=== PATIENT | female | born 1960 | race Caucasian/White ===

== ENCOUNTER 2023-05-24 11:36 | Outpatient (REF) | payer BC, SELFPAY ==
[2023-05-24 15:01] LABS: BUN 21 mg/dL (7-18); CREATININE 1.2 mg/dL (0.55-1.02); Calcium 9.7 mg/dL (8.5-10.1); Chloride 102 mmol/L (98-107); Glucose 118 mg/dL (74-106); Sodium 141 mmol/L (136-145)
[2023-05-24 15:24] LABS: Potassium 2.8 mmol/L (3.5-5.1)
== END 2023-05-24 11:37 | disposition home or self-care (01) ==
LOC: NCHCN 11:36
PROVIDERS: PCP Family Medicine; Visit Provider Family Medicine
DX: I10 Essential (primary) hypertension (principal)
CPT/HCPCS: 80048

== ENCOUNTER 2023-05-25 12:05 | Outpatient (REF) | payer BC, SELFPAY ==
[2023-05-25 16:00] LABS: Anion Gap 10.6 mmol/L (3-11); BUN 21 mg/dL (7-18); CO2 29.4 mmol/L (21.0-32.0); CREATININE 1.2 mg/dL (0.55-1.02); Calcium 9.8 mg/dL (8.5-10.1); Chloride 103 mmol/L (98-107); Glucose 96 mg/dL (74-106); Magnesium 2.1 mg/dL (1.8-2.4); Potassium 4.2 mmol/L (3.5-5.1); Sodium 143 mmol/L (136-145)
== END 2023-05-25 12:06 | disposition home or self-care (01) ==
LOC: NCHCN 12:05
PROVIDERS: PCP Family Medicine; Visit Provider Family Medicine
DX: E87.6 Hypokalemia (principal)
CPT/HCPCS: 80048; 83735

== ENCOUNTER 2023-07-23 09:47 | Outpatient (CLI) | payer BC, SELFPAY ==
[2023-07-23 09:56] LABS: Abs Immature Grans 0.01 10^3/uL (0.0-0.06); Absolute Basophil Count 0.02 10^3/uL (0.0-0.2); Absolute Eosinophil Count 0.04 10^3/uL (0.0-0.7); Absolute Lymphocyte Count 0.76 10^3/uL (1.2-3.4); Absolute Monocyte Count 0.15 10^3/uL (0.1-0.8); Absolute Neutrophil Count 1.21 10^3/uL (1.2-6.7); Basophils % 0.9; Eosinophils % 1.8; HCT 30.4 % (36.0-46.0); HGB 10.7 g/dL (11.2-15.7); Immature Grans % 0.5; Lymphocytes % 34.7; MCH 33.3 pg (27.0-33.0); MCHC 35.2 % (32.0-36.0); MCV 95 fL (80-95); MPV 9.4 fL (8.0-11.0); Monocytes % 6.8; Neutrophils % 55.3; Platelet Count 125 10^3/uL (130-400); RBC 3.21 10^6/uL (3.93-5.22); RDW 16.8 % (11.7-14.6); WBC 2.19 10^3/uL (4.4-10.8)
[2023-07-23 10:21] LABS: ALT 25 U/L (14-59); AST 17 U/L (15-37); Albumin 3.7 g/dL (3.4-5.0); Alkaline Phosphatase 81 U/L (46-116); Anion Gap 7.2 mmol/L (3-11); BUN 22 mg/dL (7-18); Bilirubin, Total 0.7 mg/dL (0.2-1.0); CO2 28.8 mmol/L (21.0-32.0); CREATININE 1.1 mg/dL (0.55-1.02); Chloride 104 mmol/L (98-107); Estimated GFR 57.17 (mL/min/1.73m2); Glucose 93 mg/dL (74-106); Potassium 4.3 mmol/L (3.5-5.1); Sodium 140 mmol/L (136-145); Total Protein 7.5 g/dL (6.4-8.2)
== END 2023-07-23 09:48 | disposition home or self-care (01) ==
LOC: LBO 09:47
PROVIDERS: PCP Family Medicine; Visit Provider Internal Medicine Hematology & Oncology
DX: C50.911 Malignant neoplasm of unspecified site of right female breast (principal)
CPT/HCPCS: 36415; 80053; 85025

== ENCOUNTER 2023-08-17 15:19 | Outpatient (CLI) | payer BC, SELFPAY ==
[2023-08-17 15:15] LABS: Absolute Basophil Count 0.04 10^3/uL (0.0-0.2); Absolute Eosinophil Count 0.03 10^3/uL (0.0-0.7); Absolute Lymphocyte Count 1.01 10^3/uL (1.2-3.4); Absolute Monocyte Count 0.22 10^3/uL (0.1-0.8); Absolute Neutrophil Count 1.22 10^3/uL (1.2-6.7); Basophils % 1.6 %; Eosinophils % 1.2 %; HCT 28.4 % (36.0-46.0); Lymphocytes % 40.1 %; MCH 35.7 pg (27.0-33.0); MCHC 35.2 % (32.0-36.0); MCV 101 fL (80-95); MPV 8.5 fL (8.0-11.0); Monocytes % 8.7 %; Neutrophils % 48.4 %; Platelet Count 114 10^3/uL (130-400); RDW 15.8 % (11.7-14.6); RDW-SD 59.2 fL; WBC 2.52 10^3/uL (4.4-10.8)
[2023-08-17 15:52] LABS: ALT 22 U/L (14-59); AST 12 U/L (15-37); Albumin 3.7 g/dL (3.4-5.0); Alkaline Phosphatase 75 U/L (46-116); Anion Gap 7.6 mmol/L (3-11); BUN 20 mg/dL (7-18); Bilirubin, Total 0.4 mg/dL (0.2-1.0); CO2 28.4 mmol/L (21.0-32.0); CREATININE 1.1 mg/dL (0.55-1.02); Calcium 9.3 mg/dL (8.5-10.1); Chloride 108 mmol/L (98-107); Estimated GFR 57.17 (mL/min/1.73m2); Glucose 92 mg/dL (74-106); Potassium 3.8 mmol/L (3.5-5.1); Sodium 144 mmol/L (136-145); Total Protein 7.4 g/dL (6.4-8.2)
== END 2023-08-17 15:20 | disposition home or self-care (01) ==
LOC: LBO 15:19
PROVIDERS: PCP Family Medicine; Visit Provider Internal Medicine Hematology & Oncology
DX: C50.919 Malignant neoplasm of unspecified site of unspecified female breast (principal)
CPT/HCPCS: 36415; 80053; 85025

== ENCOUNTER 2023-09-15 05:33 | Outpatient (CLI) | payer BC, SELFPAY ==
[2023-09-15 13:34] LABS: Abs Immature Grans 0.01 10^3/uL (0.0-0.06); Absolute Basophil Count 0.04 10^3/uL (0.0-0.2); Absolute Eosinophil Count 0.04 10^3/uL (0.0-0.7); Absolute Lymphocyte Count 1.04 10^3/uL (1.2-3.4); Absolute Monocyte Count 0.19 10^3/uL (0.1-0.8); Basophils % 1.4 %; Eosinophils % 1.4 %; HCT 31.6 % (36.0-46.0); Immature Grans % 0.3 %; Lymphocytes % 35.6 %; MCH 35.9 pg (27.0-33.0); MCHC 34.8 % (32.0-36.0); MCV 103 fL (80-95); MPV 8.9 fL (8.0-11.0); Monocytes % 6.5 %; Neutrophils % 54.8 %; Platelet Count 117 10^3/uL (130-400); RBC 3.06 10^6/uL (3.93-5.22); RDW 13.1 % (11.7-14.6); RDW-SD 49.5 fL; WBC 2.92 10^3/uL (4.4-10.8)
[2023-09-15 14:28] LABS: ALT 27 U/L (14-59); AST 15 U/L (15-37); Albumin 3.8 g/dL (3.4-5.0); Alkaline Phosphatase 92 U/L (46-116); Anion Gap 8.8 mmol/L (3-11); BUN 25 mg/dL (7-18); Bilirubin, Total 0.5 mg/dL (0.2-1.0); CO2 28.2 mmol/L (21.0-32.0); CREATININE 1.3 mg/dL (0.55-1.02); Calcium 9.6 mg/dL (8.5-10.1); Chloride 104 mmol/L (98-107); Estimated GFR 46.78 (mL/min/1.73m2); Glucose 89 mg/dL (74-106); Potassium 4.1 mmol/L (3.5-5.1); Sodium 141 mmol/L (136-145); Total Protein 7.8 g/dL (6.4-8.2)
== END 2023-09-15 05:34 | disposition home or self-care (01) ==
LOC: LBO 05:33
PROVIDERS: PCP Family Medicine; Visit Provider Internal Medicine Hematology & Oncology
DX: C50.912 Malignant neoplasm of unspecified site of left female breast (principal)
CPT/HCPCS: 36415; 80053; 85025

== ENCOUNTER 2023-10-12 02:53 | Outpatient (CLI) | payer BC, SELFPAY ==
[2023-10-12 11:18] LABS: Absolute Basophil Count 0.05 10^3/uL (0.0-0.2); Absolute Eosinophil Count 0.05 10^3/uL (0.0-0.7); Absolute Lymphocyte Count 0.77 10^3/uL (1.2-3.4); Absolute Neutrophil Count 1.64 10^3/uL (1.2-6.7); Basophils % 1.8 %; Eosinophils % 1.8 %; HCT 28.9 % (36.0-46.0); HGB 10.3 g/dL (11.2-15.7); Lymphocytes % 28.4 %; MCH 36.5 pg (27.0-33.0); MCHC 35.6 % (32.0-36.0); MCV 103 fL (80-95); MPV 8.8 fL (8.0-11.0); Monocytes % 7.4 %; Neutrophils % 60.6 %; Platelet Count 129 10^3/uL (130-400); RBC 2.82 10^6/uL (3.93-5.22); RDW 12.4 % (11.7-14.6); RDW-SD 46.2 fL; WBC 2.71 10^3/uL (4.4-10.8)
[2023-10-12 11:32] LABS: Albumin 3.6 g/dL (3.4-5.0); Alkaline Phosphatase 97 U/L (46-116); BUN 20 mg/dL (7-18); Bilirubin, Total 0.44 mg/dL (0.2-1.0); CO2 27.7 mmol/L (21.0-32.0); CREATININE 1.1 mg/dL (0.55-1.02); Calcium 9.7 mg/dL (8.5-10.1); Chloride 104 mmol/L (98-107); Estimated GFR 57.17 (mL/min/1.73m2); Glucose 86 mg/dL (74-106); Potassium 3.8 mmol/L (3.5-5.1); Sodium 140 mmol/L (136-145); Total Protein 7.9 g/dL (6.4-8.2)
[2023-10-12 11:33] LABS: ALT 18 U/L (14-59); AST 12 U/L (15-37); Anion Gap 8.3 mmol/L (3-11)
== END 2023-10-12 02:54 | disposition home or self-care (01) ==
LOC: LBO 02:53
PROVIDERS: PCP Family Medicine; Visit Provider Internal Medicine Hematology & Oncology
DX: C50.919 Malignant neoplasm of unspecified site of unspecified female breast (principal)
CPT/HCPCS: 36415; 80053; 85025

== ENCOUNTER 2023-11-09 03:23 | Outpatient (CLI) | payer BC, SELFPAY ==
[2023-11-09 07:35] LABS: Absolute Basophil Count 0.04 10^3/uL (0.0-0.2); Absolute Eosinophil Count 0.05 10^3/uL (0.0-0.7); Absolute Lymphocyte Count 0.81 10^3/uL (1.2-3.4); Absolute Monocyte Count 0.19 10^3/uL (0.1-0.8); Absolute Neutrophil Count 1.23 10^3/uL (1.2-6.7); Basophils % 1.7 %; Eosinophils % 2.2 %; HCT 29.5 % (36.0-46.0); HGB 10.7 g/dL (11.2-15.7); Lymphocytes % 34.9 %; MCH 37.2 pg (27.0-33.0); MCHC 36.3 % (32.0-36.0); MCV 102 fL (80-95); Monocytes % 8.2 %; Platelet Count 103 10^3/uL (130-400); RBC 2.88 10^6/uL (3.93-5.22); RDW 12.6 % (11.7-14.6); WBC 2.32 10^3/uL (4.4-10.8)
[2023-11-09 07:52] LABS: ALT 21 U/L (14-59); Albumin 3.5 g/dL (3.4-5.0); Alkaline Phosphatase 90 U/L (46-116); Anion Gap 13.2 mmol/L (3-11); BUN 16 mg/dL (7-18); Bilirubin, Total 0.37 mg/dL (0.2-1.0); CO2 21.8 mmol/L (21.0-32.0); CREATININE 1.1 mg/dL (0.55-1.02); Calcium 8.9 mg/dL (8.5-10.1); Chloride 109 mmol/L (98-107); Estimated GFR 56.81 (mL/min/1.73m2); Glucose 103 mg/dL (74-106); Potassium 3.9 mmol/L (3.5-5.1); Sodium 144 mmol/L (136-145); Total Protein 7.4 g/dL (6.4-8.2)
[2023-11-09 08:13] LABS: AST < 5 U/L (15-37)
== END 2023-11-09 03:24 | disposition home or self-care (01) ==
LOC: LBO 03:24
PROVIDERS: PCP Family Medicine; Visit Provider Internal Medicine Hematology & Oncology
DX: C50.919 Malignant neoplasm of unspecified site of unspecified female breast (principal)
CPT/HCPCS: 36415; 80053; 85025

== ENCOUNTER 2023-12-07 02:51 | Outpatient (CLI) | payer BC, SELFPAY ==
[2023-12-07 12:25] LABS: Abs Immature Grans 0.02 10^3/uL (0.0-0.06); Absolute Basophil Count 0.05 10^3/uL (0.0-0.2); Absolute Eosinophil Count 0.04 10^3/uL (0.0-0.7); Absolute Lymphocyte Count 0.81 10^3/uL (1.2-3.4); Absolute Monocyte Count 0.19 10^3/uL (0.1-0.8); Absolute Neutrophil Count 1.73 10^3/uL (1.2-6.7); Basophils % 1.8 %; Eosinophils % 1.4 %; HCT 29.8 % (36.0-46.0); HGB 10.6 g/dL (11.2-15.7); Immature Grans % 0.7 %; Lymphocytes % 28.5 %; MCH 37.2 pg (27.0-33.0); MCHC 35.6 % (32.0-36.0); MCV 105 fL (80-95); MPV 9.1 fL (8.0-11.0); Monocytes % 6.7 %; Neutrophils % 60.9 %; Platelet Count 109 10^3/uL (130-400); RBC 2.85 10^6/uL (3.93-5.22); RDW 13.2 % (11.7-14.6); RDW-SD 50.6 fL; WBC 2.84 10^3/uL (4.4-10.8)
[2023-12-07 12:43] LABS: ALT 20 U/L (14-59); AST 14 U/L (15-37); Albumin 3.7 g/dL (3.4-5.0); Alkaline Phosphatase 86 U/L (46-116); Anion Gap 8.6 mmol/L (3-11); BUN 15 mg/dL (7-18); Bilirubin, Total 0.48 mg/dL (0.2-1.0); CO2 25.4 mmol/L (21.0-32.0); Calcium 9.5 mg/dL (8.5-10.1); Chloride 106 mmol/L (98-107); Glucose 95 mg/dL (74-106); Potassium 3.9 mmol/L (3.5-5.1); Sodium 140 mmol/L (136-145); Total Protein 7.6 g/dL (6.4-8.2)
== END 2023-12-07 02:52 | disposition home or self-care (01) ==
LOC: LBO 02:51
PROVIDERS: PCP Family Medicine; Visit Provider Internal Medicine Hematology & Oncology
DX: C50.919 Malignant neoplasm of unspecified site of unspecified female breast (principal)
CPT/HCPCS: 36415; 80053; 85025

== ENCOUNTER 2024-01-05 10:07 | Outpatient (CLI) | payer BC, SELFPAY ==
[2024-01-05 10:31] LABS: Absolute Basophil Count 0.04 10^3/uL (0.0-0.2); Absolute Eosinophil Count 0.03 10^3/uL (0.0-0.7); Absolute Lymphocyte Count 0.76 10^3/uL (1.2-3.4); Absolute Monocyte Count 0.18 10^3/uL (0.1-0.8); Absolute Neutrophil Count 1.28 10^3/uL (1.2-6.7); Basophils % 1.7 %; Eosinophils % 1.3 %; HCT 29.1 % (36.0-46.0); HGB 10.1 g/dL (11.2-15.7); Lymphocytes % 33.2 %; MCH 36.3 pg (27.0-33.0); MCHC 34.7 % (32.0-36.0); MCV 105 fL (80-95); MPV 9.2 fL (8.0-11.0); Monocytes % 7.9 %; Neutrophils % 55.9 %; Platelet Count 106 10^3/uL (130-400); RBC 2.78 10^6/uL (3.93-5.22); RDW 13.1 % (11.7-14.6); RDW-SD 49.7 fL; WBC 2.29 10^3/uL (4.4-10.8)
[2024-01-05 10:43] LABS: ALT 18 U/L (14-59); AST 14 U/L (15-37); Albumin 3.6 g/dL (3.4-5.0); Alkaline Phosphatase 96 U/L (46-116); Anion Gap 7.7 mmol/L (3-11); BUN 21 mg/dL (7-18); Bilirubin, Total 0.43 mg/dL (0.2-1.0); CO2 27.3 mmol/L (21.0-32.0); CREATININE 1.2 mg/dL (0.55-1.02); Calcium 9.5 mg/dL (8.5-10.1); Chloride 105 mmol/L (98-107); Estimated GFR 51.18 (mL/min/1.73m2); Glucose 87 mg/dL (74-106); Potassium 4.4 mmol/L (3.5-5.1); Sodium 140 mmol/L (136-145); Total Protein 7.8 g/dL (6.4-8.2)
== END 2024-01-05 10:08 | disposition home or self-care (01) ==
LOC: LBO 10:07
PROVIDERS: PCP Family Medicine; Visit Provider Nurse Practitioner Family
DX: C50.919 Malignant neoplasm of unspecified site of unspecified female breast (principal)
CPT/HCPCS: 36415; 80053; 85025

== ENCOUNTER 2024-02-01 02:01 | Outpatient (CLI) | payer BC, SELFPAY ==
[2024-02-01 13:09] LABS: Absolute Basophil Count 0.03 10^3/uL (0.0-0.2); Absolute Eosinophil Count 0.03 10^3/uL (0.0-0.7); Absolute Lymphocyte Count 0.82 10^3/uL (1.2-3.4); Absolute Monocyte Count 0.16 10^3/uL (0.1-0.8); Basophils % 1.3 %; Eosinophils % 1.3 %; HCT 29.8 % (36.0-46.0); HGB 10.5 g/dL (11.2-15.7); Lymphocytes % 36.6 %; MCH 36.8 pg (27.0-33.0); MCHC 35.2 % (32.0-36.0); MCV 105 fL (80-95); MPV 9.1 fL (8.0-11.0); Monocytes % 7.1 %; Neutrophils % 53.7 %; Platelet Count 110 10^3/uL (130-400); RBC 2.85 10^6/uL (3.93-5.22); RDW 13.3 % (11.7-14.6); RDW-SD 50.8 fL; WBC 2.24 10^3/uL (4.4-10.8)
[2024-02-01 13:28] LABS: ALT 24 U/L (14-59); Albumin 3.5 g/dL (3.4-5.0); Alkaline Phosphatase 81 U/L (46-116); Anion Gap 8.7 mmol/L (3-11); BUN 21 mg/dL (7-18); Bilirubin, Total 0.42 mg/dL (0.2-1.0); CO2 26.3 mmol/L (21.0-32.0); CREATININE 1.2 mg/dL (0.55-1.02); Calcium 9.6 mg/dL (8.5-10.1); Chloride 107 mmol/L (98-107); Estimated GFR 51.18 (mL/min/1.73m2); Glucose 93 mg/dL (74-106); Potassium 4.5 mmol/L (3.5-5.1); Sodium 142 mmol/L (136-145); Total Protein 7.6 g/dL (6.4-8.2)
[2024-02-01 13:37] LABS: AST 7 U/L (15-37)
[2024-02-01 13:54] LABS: Diff Comment Agrees w/ Instrument; RBC Morphology Normal
== END 2024-02-01 02:02 | disposition home or self-care (01) ==
LOC: LBO 02:01
PROVIDERS: PCP Family Medicine; Visit Provider Nurse Practitioner Family
DX: C50.919 Malignant neoplasm of unspecified site of unspecified female breast (principal)
CPT/HCPCS: 36415; 80053; 85025

== ENCOUNTER 2024-02-29 14:31 | Outpatient (CLI) | payer BC, SELFPAY ==
[2024-02-29 13:04] LABS: Abs Immature Grans 0.01 10^3/uL (0.0-0.06); Absolute Basophil Count 0.03 10^3/uL (0.0-0.2); HCT 30.5 % (36.0-46.0); HGB 10.9 g/dL (11.2-15.7); MCH 37.5 pg (27.0-33.0); MCHC 35.7 % (32.0-36.0); MCV 105 fL (80-95); MPV 9.2 fL (8.0-11.0); Platelet Count 114 10^3/uL (130-400); RBC 2.91 10^6/uL (3.93-5.22); RDW 13.2 % (11.7-14.6); RDW-SD 50.3 fL; WBC 2.75 10^3/uL (4.4-10.8)
[2024-02-29 13:20] LABS: ALT 28 U/L (14-59); AST 23 U/L (15-37); Albumin 3.8 g/dL (3.4-5.0); Alkaline Phosphatase 86 U/L (46-116); Anion Gap 11.3 mmol/L (3-11); BUN 23 mg/dL (7-18); CO2 25.7 mmol/L (21.0-32.0); CREATININE 1.2 mg/dL (0.55-1.02); Calcium 9.5 mg/dL (8.5-10.1); Chloride 103 mmol/L (98-107); Estimated GFR 51.18 (mL/min/1.73m2); Glucose 108 mg/dL (74-106); Potassium 4.1 mmol/L (3.5-5.1); Sodium 140 mmol/L (136-145); Total Protein 8.1 g/dL (6.4-8.2)
[2024-02-29 13:34] LABS: Absolute Lymphocyte Count 0.99 10^3/uL (1.2-3.4); Absolute Monocyte Count 0.14 10^3/uL (0.1-0.8); Atypical Lymphocytes % 2 %; Bands % 0 %; Diff Comment Manual Differential
== END 2024-02-29 14:32 | disposition home or self-care (01) ==
LOC: LBO 14:32
PROVIDERS: PCP Family Medicine; Visit Provider Nurse Practitioner Family
DX: C50.919 Malignant neoplasm of unspecified site of unspecified female breast (principal)
CPT/HCPCS: 36415; 80053; 85025

== ENCOUNTER 2024-03-28 02:58 | Outpatient (CLI) | payer BC, SELFPAY ==
[2024-03-28 10:55] LABS: Abs Immature Grans 0.01 10^3/uL (0.0-0.06); Absolute Basophil Count 0.02 10^3/uL (0.0-0.2); Absolute Eosinophil Count 0.02 10^3/uL (0.0-0.7); Absolute Lymphocyte Count 0.85 10^3/uL (1.2-3.4); Basophils % 0.7 %; Eosinophils % 0.7 %; HCT 29.4 % (36.0-46.0); HGB 10.5 g/dL (11.2-15.7); Immature Grans % 0.3 %; Lymphocytes % 28.3 %; MCHC 35.7 % (32.0-36.0); MCV 104 fL (80-95); MPV 8.9 fL (8.0-11.0); Platelet Count 124 10^3/uL (130-400); RBC 2.84 10^6/uL (3.93-5.22); RDW 12.1 % (11.7-14.6); RDW-SD 46.4 fL
[2024-03-28 11:12] LABS: ALT 16 U/L (14-59); AST 13 U/L (15-37); Albumin 3.6 g/dL (3.4-5.0); Alkaline Phosphatase 71 U/L (46-116); Anion Gap 7.5 mmol/L (3-11); BUN 26 mg/dL (7-18); Bilirubin, Total 0.54 mg/dL (0.2-1.0); CO2 26.5 mmol/L (21.0-32.0); CREATININE 1.1 mg/dL (0.55-1.02); Calcium 9.4 mg/dL (8.5-10.1); Chloride 106 mmol/L (98-107); Estimated GFR 56.81 (mL/min/1.73m2); Glucose 96 mg/dL (74-106); Potassium 4.2 mmol/L (3.5-5.1); Sodium 140 mmol/L (136-145); Total Protein 7.5 g/dL (6.4-8.2)
== END 2024-03-28 02:59 | disposition home or self-care (01) ==
PROVIDERS: PCP Family Medicine; Visit Provider Nurse Practitioner Family
DX: C50.919 Malignant neoplasm of unspecified site of unspecified female breast (principal)
CPT/HCPCS: 36415; 80053; 85025

== ENCOUNTER 2024-04-25 03:23 | Outpatient (CLI) | payer BC, SELFPAY ==
[2024-04-25 11:06] LABS: Abs Immature Grans 0.01 10^3/uL (0.0-0.06); Absolute Eosinophil Count 0.03 10^3/uL (0.0-0.7); HGB 11.7 g/dL (11.2-15.7); Immature Grans % 0.3 %
[2024-04-25 11:23] LABS: ALT 20 U/L (14-59); Albumin 3.8 g/dL (3.4-5.0); Alkaline Phosphatase 78 U/L (46-116); Anion Gap 9.6 mmol/L (3-11); BUN 22 mg/dL (7-18); Bilirubin, Total 0.46 mg/dL (0.2-1.0); CO2 25.4 mmol/L (21.0-32.0); Calcium 10.1 mg/dL (8.5-10.1); Chloride 106 mmol/L (98-107); Glucose 117 mg/dL (74-106); Potassium 4.2 mmol/L (3.5-5.1); Sodium 141 mmol/L (136-145); Total Protein 8.2 g/dL (6.4-8.2)
[2024-04-25 11:35] LABS: Absolute Basophil Count 0.06 10^3/uL (0.0-0.2); Absolute Lymphocyte Count 1.11 10^3/uL (1.2-3.4); Absolute Monocyte Count 0.17 10^3/uL (0.1-0.8); Absolute Neutrophil Count 1.64 10^3/uL (1.2-6.7); HCT 32.8 % (36.0-46.0); Lymphocytes % 36.8 %; MCH 36.6 pg (27.0-33.0); MCHC 35.7 % (32.0-36.0); MCV 103 fL (80-95); MPV 9.3 fL (8.0-11.0); Monocytes % 5.6 %; Neutrophils % 54.3 %; Platelet Count 127 10^3/uL (130-400); RDW 12.7 % (11.7-14.6); RDW-SD 47.8 fL; WBC 3.02 10^3/uL (4.4-10.8)
[2024-04-25 12:21] LABS: AST 8 U/L (15-37)
== END 2024-04-25 03:24 | disposition home or self-care (01) ==
PROVIDERS: PCP Family Medicine; Visit Provider Nurse Practitioner Family
DX: C50.919 Malignant neoplasm of unspecified site of unspecified female breast (principal)
CPT/HCPCS: 36415; 80053; 85025

== ENCOUNTER 2024-05-25 03:16 | Outpatient (CLI) | payer BC, SELFPAY ==
[2024-05-25 08:41] LABS: Abs Immature Grans 0.01 10^3/uL (0.0-0.06); Absolute Basophil Count 0.06 10^3/uL (0.0-0.2); Absolute Eosinophil Count 0.03 10^3/uL (0.0-0.7); Absolute Lymphocyte Count 1.08 10^3/uL (1.2-3.4); Absolute Monocyte Count 0.25 10^3/uL (0.1-0.8); Absolute Neutrophil Count 1.29 10^3/uL (1.2-6.7); Basophils % 2.2 %; Eosinophils % 1.1 %; HCT 31.3 % (36.0-46.0); HGB 11.1 g/dL (11.2-15.7); Immature Grans % 0.4 %; Lymphocytes % 39.7 %; MCHC 35.5 % (32.0-36.0); MCV 104 fL (80-95); MPV 8.8 fL (8.0-11.0); Monocytes % 9.2 %; Neutrophils % 47.4 %; Platelet Count 121 10^3/uL (130-400); RDW 13.5 % (11.7-14.6); RDW-SD 51.4 fL; WBC 2.72 10^3/uL (4.4-10.8)
[2024-05-25 08:57] LABS: ALT 23 U/L (14-59); AST 15 U/L (15-37); Albumin 3.8 g/dL (3.4-5.0); Alkaline Phosphatase 88 U/L (46-116); Anion Gap 9.5 mmol/L (3-11); BUN 24 mg/dL (7-18); Bilirubin, Total 0.47 mg/dL (0.2-1.0); CO2 26.5 mmol/L (21.0-32.0); CREATININE 1.4 mg/dL (0.55-1.02); Calcium 9.7 mg/dL (8.5-10.1); Chloride 106 mmol/L (98-107); Estimated GFR 42.54 (mL/min/1.73m2); Glucose 97 mg/dL (74-106); Potassium 3.8 mmol/L (3.5-5.1); Sodium 142 mmol/L (136-145)
== END 2024-05-25 03:17 | disposition home or self-care (01) ==
LOC: LBO 03:16
PROVIDERS: PCP Family Medicine; Visit Provider Nurse Practitioner Family
DX: C50.919 Malignant neoplasm of unspecified site of unspecified female breast (principal)
CPT/HCPCS: 36415; 80053; 85025

== ENCOUNTER 2024-06-01 01:14 | Outpatient (CLI) | payer BC, SELFPAY ==
[2024-06-01 10:02] LABS: Abs Immature Grans 0.01 10^3/uL (0.0-0.06); Absolute Basophil Count 0.04 10^3/uL (0.0-0.2); Absolute Eosinophil Count 0.01 10^3/uL (0.0-0.7); Absolute Lymphocyte Count 0.86 10^3/uL (1.2-3.4); Absolute Monocyte Count 0.38 10^3/uL (0.1-0.8); Absolute Neutrophil Count 1.23 10^3/uL (1.2-6.7); Basophils % 1.6 %; Eosinophils % 0.4 %; HCT 31.2 % (36.0-46.0); HGB 10.6 g/dL (11.2-15.7); Immature Grans % 0.4 %; MCH 36.3 pg (27.0-33.0); MCV 107 fL (80-95); MPV 9.2 fL (8.0-11.0); Neutrophils % 48.6 %; Platelet Count 113 10^3/uL (130-400); RBC 2.92 10^6/uL (3.93-5.22); RDW 13.5 % (11.7-14.6); RDW-SD 53.2 fL; WBC 2.53 10^3/uL (4.4-10.8)
[2024-06-01 10:17] LABS: Diff Comment RBC Morph Reviewed; Macrocytosis 2+
[2024-06-01 10:18] LABS: Polychromasia Present
[2024-06-01 10:22] LABS: ALT 48 U/L (14-59); AST 37 U/L (15-37); Albumin 3.6 g/dL (3.4-5.0); Alkaline Phosphatase 116 U/L (46-116); Anion Gap 6.1 mmol/L (3-11); BUN 21 mg/dL (7-18); Bilirubin, Total 0.32 mg/dL (0.2-1.0); CO2 27.9 mmol/L (21.0-32.0); Calcium 9.6 mg/dL (8.5-10.1); Chloride 106 mmol/L (98-107); Glucose 100 mg/dL (74-106); Potassium 4.1 mmol/L (3.5-5.1); Sodium 140 mmol/L (136-145); Total Protein 7.8 g/dL (6.4-8.2)
== END 2024-06-01 01:15 | disposition home or self-care (01) ==
PROVIDERS: PCP Family Medicine; Visit Provider Nurse Practitioner Family
DX: C50.919 Malignant neoplasm of unspecified site of unspecified female breast (principal)
CPT/HCPCS: 36415; 80053; 85025

== ENCOUNTER 2024-06-15 03:01 | Outpatient (CLI) | payer BC, SELFPAY ==
[2024-06-15 10:17] LABS: Abs Immature Grans 0.01 10^3/uL (0.0-0.06); Absolute Basophil Count 0.05 10^3/uL (0.0-0.2); Absolute Eosinophil Count 0.06 10^3/uL (0.0-0.7); Absolute Lymphocyte Count 0.93 10^3/uL (1.2-3.4); Basophils % 1.3 %; Eosinophils % 1.6 %; HCT 32.2 % (36.0-46.0); HGB 11.3 g/dL (11.2-15.7); Immature Grans % 0.3 %; Lymphocytes % 24.2 %; MCH 36.3 pg (27.0-33.0); MCHC 35.1 % (32.0-36.0); MCV 104 fL (80-95); MPV 8.5 fL (8.0-11.0); Monocytes % 5.2 %; Neutrophils % 67.4 %; Platelet Count 142 10^3/uL (130-400); RBC 3.11 10^6/uL (3.93-5.22); RDW 12.7 % (11.7-14.6); RDW-SD 47.7 fL; WBC 3.85 10^3/uL (4.4-10.8)
[2024-06-15 10:18] LABS: Absolute Neutrophil Count 2.59 10^3/uL (1.2-6.7)
[2024-06-15 10:37] LABS: ALT 27 U/L (14-59); AST 17 U/L (15-37); Albumin 3.7 g/dL (3.4-5.0); Alkaline Phosphatase 82 U/L (46-116); Anion Gap 7.3 mmol/L (3-11); BUN 24 mg/dL (7-18); Bilirubin, Total 0.43 mg/dL (0.2-1.0); CO2 27.7 mmol/L (21.0-32.0); CREATININE 1.1 mg/dL (0.55-1.02); Calcium 9.9 mg/dL (8.5-10.1); Chloride 106 mmol/L (98-107); Estimated GFR 56.81 (mL/min/1.73m2); Glucose 94 mg/dL (74-106); Potassium 4.5 mmol/L (3.5-5.1); Sodium 141 mmol/L (136-145); Total Protein 7.7 g/dL (6.4-8.2)
== END 2024-06-15 03:02 | disposition home or self-care (01) ==
PROVIDERS: PCP Family Medicine; Visit Provider Nurse Practitioner Family
DX: C50.919 Malignant neoplasm of unspecified site of unspecified female breast (principal)
CPT/HCPCS: 36415; 80053; 85025

== ENCOUNTER 2024-06-29 01:35 | Outpatient (CLI) | payer BC, SELFPAY ==
[2024-06-29 09:40] LABS: Abs Immature Grans 0.01 10^3/uL (0.0-0.06); Absolute Basophil Count 0.03 10^3/uL (0.0-0.2); Absolute Eosinophil Count 0.03 10^3/uL (0.0-0.7); Absolute Lymphocyte Count 0.94 10^3/uL (1.2-3.4); Absolute Monocyte Count 0.19 10^3/uL (0.1-0.8); Absolute Neutrophil Count 1.19 10^3/uL (1.2-6.7); Basophils % 1.3 %; Eosinophils % 1.3 %; HCT 31.9 % (36.0-46.0); HGB 11.1 g/dL (11.2-15.7); Immature Grans % 0.4 %; Lymphocytes % 39.3 %; MCH 36.2 pg (27.0-33.0); MCHC 34.8 % (32.0-36.0); MCV 104 fL (80-95); Monocytes % 7.9 %; Neutrophils % 49.8 %; Platelet Count 137 10^3/uL (130-400); RBC 3.07 10^6/uL (3.93-5.22); RDW 12.4 % (11.7-14.6); RDW-SD 47.1 fL; WBC 2.39 10^3/uL (4.4-10.8)
[2024-06-29 09:58] LABS: ALT 20 U/L (14-59); AST 17 U/L (15-37); Albumin 3.7 g/dL (3.4-5.0); Alkaline Phosphatase 79 U/L (46-116); BUN 23 mg/dL (7-18); Bilirubin, Total 0.6 mg/dL (0.2-1.0); CREATININE 1.2 mg/dL (0.55-1.02); Calcium 9.5 mg/dL (8.5-10.1); Chloride 105 mmol/L (98-107); Estimated GFR 51.18 (mL/min/1.73m2); Glucose 97 mg/dL (74-106); Potassium 4.1 mmol/L (3.5-5.1); Sodium 140 mmol/L (136-145); Total Protein 7.9 g/dL (6.4-8.2)
== END 2024-06-29 01:36 | disposition home or self-care (01) ==
PROVIDERS: PCP Family Medicine; Visit Provider Nurse Practitioner Family
DX: C50.919 Malignant neoplasm of unspecified site of unspecified female breast (principal)
CPT/HCPCS: 36415; 80053; 85025

== ENCOUNTER 2024-07-06 02:42 | Outpatient (CLI) | payer BC, SELFPAY ==
[2024-07-06 11:00] LABS: Absolute Basophil Count 0.05 10^3/uL (0.0-0.2); Absolute Eosinophil Count 0.04 10^3/uL (0.0-0.7); Absolute Lymphocyte Count 0.78 10^3/uL (1.2-3.4); Absolute Neutrophil Count 1.38 10^3/uL (1.2-6.7); Eosinophils % 1.6 %; HCT 31.5 % (36.0-46.0); HGB 10.9 g/dL (11.2-15.7); Lymphocytes % 30.6 %; MCH 35.6 pg (27.0-33.0); MCHC 34.6 % (32.0-36.0); MCV 103 fL (80-95); MPV 9.2 fL (8.0-11.0); Monocytes % 11.8 %; Platelet Count 105 10^3/uL (130-400); RBC 3.06 10^6/uL (3.93-5.22); RDW 12.4 % (11.7-14.6); RDW-SD 46.5 fL; WBC 2.55 10^3/uL (4.4-10.8)
[2024-07-06 11:21] LABS: ALT 21 U/L (14-59); AST 15 U/L (15-37); Albumin 3.6 g/dL (3.4-5.0); Alkaline Phosphatase 84 U/L (46-116); Anion Gap 5.3 mmol/L (3-11); BUN 23 mg/dL (7-18); Bilirubin, Total 0.5 mg/dL (0.2-1.0); CO2 29.7 mmol/L (21.0-32.0); CREATININE 1.1 mg/dL (0.55-1.02); Chloride 106 mmol/L (98-107); Estimated GFR 56.81 (mL/min/1.73m2); Glucose 95 mg/dL (74-106); Potassium 4.5 mmol/L (3.5-5.1); Sodium 141 mmol/L (136-145); Total Protein 7.9 g/dL (6.4-8.2)
== END 2024-07-06 02:43 | disposition home or self-care (01) ==
PROVIDERS: PCP Family Medicine; Visit Provider Nurse Practitioner Family
DX: C50.919 Malignant neoplasm of unspecified site of unspecified female breast (principal)
CPT/HCPCS: 36415; 80053; 85025

== ENCOUNTER 2024-07-28 00:47 | Outpatient (CLI) | payer BC, SELFPAY ==
[2024-07-28 10:30] LABS: Abs Immature Grans 0.01 10^3/uL (0.0-0.06); Absolute Basophil Count 0.04 10^3/uL (0.0-0.2); Absolute Eosinophil Count 0.05 10^3/uL (0.0-0.7); Absolute Lymphocyte Count 0.76 10^3/uL (1.2-3.4); Absolute Neutrophil Count 1.76 10^3/uL (1.2-6.7); Basophils % 1.4 %; Eosinophils % 1.7 %; HCT 31.6 % (36.0-46.0); HGB 10.9 g/dL (11.2-15.7); Immature Grans % 0.3 %; MCH 35.4 pg (27.0-33.0); MCHC 34.5 % (32.0-36.0); MCV 103 fL (80-95); MPV 8.6 fL (8.0-11.0); Monocytes % 10.3 %; Neutrophils % 60.3 %; Platelet Count 124 10^3/uL (130-400); RBC 3.08 10^6/uL (3.93-5.22); RDW 11.9 % (11.7-14.6); RDW-SD 44.5 fL; WBC 2.92 10^3/uL (4.4-10.8)
[2024-07-28 10:46] LABS: ALT 38 U/L (14-59); AST 27 U/L (15-37); Albumin 3.6 g/dL (3.4-5.0); Alkaline Phosphatase 124 U/L (46-116); Anion Gap 10.7 mmol/L (3-11); BUN 20 mg/dL (7-18); Bilirubin, Total 0.5 mg/dL (0.2-1.0); CO2 25.3 mmol/L (21.0-32.0); CREATININE 1.2 mg/dL (0.55-1.02); Calcium 9.6 mg/dL (8.5-10.1); Chloride 103 mmol/L (98-107); Estimated GFR 51.18 (mL/min/1.73m2); Glucose 100 mg/dL (74-106); Potassium 4.1 mmol/L (3.5-5.1); Sodium 139 mmol/L (136-145); Total Protein 7.8 g/dL (6.4-8.2)
== END 2024-07-28 00:48 | disposition home or self-care (01) ==
PROVIDERS: PCP Family Medicine; Visit Provider Nurse Practitioner Family
DX: C50.919 Malignant neoplasm of unspecified site of unspecified female breast (principal)
CPT/HCPCS: 36415; 80053; 85025

== ENCOUNTER 2024-08-25 01:59 | Outpatient (CLI) | payer BC, SELFPAY ==
[2024-08-25 12:09] LABS: Abs Immature Grans 0.02 10^3/uL (0.0-0.06); Absolute Basophil Count 0.05 10^3/uL (0.0-0.2); Absolute Eosinophil Count 0.16 10^3/uL (0.0-0.7); Absolute Lymphocyte Count 1.25 10^3/uL (1.2-3.4); Absolute Monocyte Count 0.64 10^3/uL (0.1-0.8); Absolute Neutrophil Count 3.27 10^3/uL (1.2-6.7); Basophils % 0.9 %; HGB 11.8 g/dL (11.2-15.7); Immature Grans % 0.4 %; Lymphocytes % 23.2 %; MCH 33.4 pg (27.0-33.0); MCHC 33.7 % (32.0-36.0); MCV 99 fL (80-95); MPV 9.3 fL (8.0-11.0); Monocytes % 11.9 %; Neutrophils % 60.6 %; Platelet Count 176 10^3/uL (130-400); RBC 3.53 10^6/uL (3.93-5.22); RDW 11.4 % (11.7-14.6); RDW-SD 41.2 fL; WBC 5.39 10^3/uL (4.4-10.8)
[2024-08-25 12:30] LABS: ALT 44 U/L (14-59); AST 28 U/L (15-37); Albumin 3.8 g/dL (3.4-5.0); Alkaline Phosphatase 117 U/L (46-116); Anion Gap 7.6 mmol/L (3-11); BUN 30 mg/dL (7-18); Bilirubin, Total 0.4 mg/dL (0.2-1.0); CO2 26.4 mmol/L (21.0-32.0); Calcium 9.6 mg/dL (8.5-10.1); Chloride 102 mmol/L (98-107); Glucose 98 mg/dL (74-106); Sodium 136 mmol/L (136-145)
== END 2024-08-25 02:00 | disposition home or self-care (01) ==
PROVIDERS: PCP Family Medicine; Visit Provider Nurse Practitioner Family
DX: C50.919 Malignant neoplasm of unspecified site of unspecified female breast (principal)
CPT/HCPCS: 36415; 80053; 85025

== ENCOUNTER 2024-08-31 04:16 | Outpatient (CLI) | payer BC, SELFPAY ==
--- NOTE | 2024-08-31 10:03 | TELEFU_ITS ---
Date of service: 08/31/24 Time of Service: 09:00 Nutrition Note NOTE: Hyun referred to today's nutrition visit for help troubleshooting her recent weight gain concerns and getting some guidance on how to approach. Kalpana is 63yo with latest measurements on 08/22/24 at 66' and 183lbs/83.0kg, which translates to a BMI of 29.5. Hyun with a hx of breast cancer and feels last 3 years on letrozole has negatively impacted her weight (as well as bone mineral density). We discussed that supplementing as she is with calcium, vitamin D, magnesium along with a MVI is a good idea, however I highlighted resistance exercises as well as meeting optimal protein needs as necessary to help with bone mineral density as well as contribute towards better metabolic health and balance. She currently does some exercises with zoom meeting at [facility] [place] - roscoe sanchez today. I supported this but also voted for incorporating resistant bands and such as tolerated. Current Diet: this morning had [employer] bagel with fried egg and cheese lunch is usually sandwich (again on toshia killer bread) or leftover from dinner the night before. Dinner last night was sheet ricks chicken with brussels sprouts and sweet potato drinks are herbal tea (unsweetened), water and likes a homemade lemonade lately. She typically sticks to 3 meals not much of a snacker. We reviewed her diet and talked about how it looks pretty good but could potentially be lower in protein than she should optimally get, especially morning meal to help jump start her eating metabolism. We discussed that it would be worth while to consider tracking added sugar, fiber and protein intake over 3 random days in a week and see where she stacks up against recommendations of at least 25g fiber, no more than 17g added sugar and grying to his 125g protein (with emphasis on plant protein for better outcomes with bone density). Also gave her option of using menu planning resources and base the planning of the macro numbers I shared today (included SFA's, fiber and added sugar along with calories, protein fat and total carb. She took my card and has my contact info to reach out if needing more resources or additional follow up appts for support. Time Spent in Nutritional Counseling and Treatment: 25 min
== END 2024-08-31 04:17 | disposition home or self-care (01) ==
LOC: DS 04:16
PROVIDERS: PCP Family Medicine; Visit Provider Dietitian, Registered
DX: E66.9 Obesity, unspecified (principal); Z68.27 Body mass index [BMI] 27.0-27.9, adult
CPT/HCPCS: 123; 97802; 00123

== ENCOUNTER 2024-09-07 02:38 | Outpatient (CLI) | payer BC, SELFPAY ==
--- NOTE | 2024-09-07 | DI.MRI_ITS ---
Exam(s) MR BRAIN WO EXAM: MR BRAIN WO CLINICAL HISTORY: NEW ONSET HEADACHES AFTER AGE 51, R51.9 NEW PERSIST LT SIDED SHARP HEARN TECHNIQUE: Multiplanar multisequence MRI of the brain was performed. COMPARISON: No exams were available for comparison FINDINGS: CEREBRAL PARENCHYMA: There is no evidence of intracranial hemorrhage, mass effect, or shift of midline structures. There are no extra-axial fluid collections. Ventricles are not enlarged or shifted. There is no evidence of cerebellar tonsillar ectopia. There is no significant focal signal abnormality in the cerebellar hemispheres nor within the carlos, m idbrain, and thalami. There are few tiny FLAIR bright foci of nonspecific signal abnormality in the right supra ventricular white matter. No evidence of demyelinating disease. There is no significant focal signal abnormality evident on diffusion imaging to suggest acute ischem ic event. PITUITARY GLAND: No mass nor parasellar abnormality. No obvious abnormality in the cavernous sinuses. FLOW VOIDS: The expected flow void are noted. No evidence of obvious aneurysm nor obvious vascular ma lformation. In the posterior circulation the left vertebral artery is dominant. PARANASAL SINUSES: There is a post inflammatory retention cyst in floor of the left maxillary sinus w hich measures 1 point 0 x 0.6 cm, not associated with a fluid level. No other significant focal sinu s findings. No mastoid effusions. ORBITS: No obvious findings. IMPRESSION: No significant intracranial findings on this noninfused MRI scan of the brain. There 2 tiny foci of nonspecific signal abnormality in the right supra ventricular white matter. No associated restricted diffusion. There is a small retention cyst in the floor of the left maxillary sinus. There is no associated flu id level. DATA REPOSITORY:
== END 2024-09-07 02:58 ==
LOC: DI 02:38
PROVIDERS: PCP Family Medicine; Visit Provider Family Medicine
DX: R51.9 Headache, unspecified (principal)
CPT/HCPCS: 70551

== ENCOUNTER 2025-02-05 09:31 | Outpatient (CLI) | payer BC, SELFPAY ==
[2025-02-05 09:48] LABS: HCT 37.5 % (36.0-46.0); HGB 12.7 g/dL (11.2-15.7); MCH 30.5 pg (27.0-33.0); MCHC 33.9 % (32.0-36.0); MCV 90 fL (80-95); MPV 9.0 fL (8.0-11.0); Platelet Count 187 10^3/uL (130-400); RBC 4.16 10^6/uL (3.93-5.22); RDW 12.7 % (11.7-14.6); RDW-SD 41.8 fL; WBC 5.42 10^3/uL (4.4-10.8)
[2025-02-05 10:02] LABS: PTT Activated 27.7 sec (20.6-30.2)
== END 2025-02-05 09:32 | disposition home or self-care (01) ==
PROVIDERS: PCP Family Medicine; Visit Provider Nurse Practitioner Family
DX: R58 Hemorrhage, not elsewhere classified (principal)
CPT/HCPCS: 36415; 85027; 85730

== ENCOUNTER 2025-02-07 11:55 | Day surgery (SDC) | payer BC, SELFPAY ==
[2025-02-07 12:10] VITALS: BP 119/85; PULSE 83; RESP 20; TEMP 36.2; O2SAT 100
[2025-02-07] MEDS: Lactated Ringers 1,000 ML 80 ML IV (12:55)
--- NOTE | 2025-02-07 13:12 | W.ANESPRE ---
General Info Date of Service Date Performed: 02/07/25 Height: 5 ft 6 in Weight: 84 kg Body Mass Index (BMI): 29.9 Surgical Procedure: Operation Date: 02/07/25 15:05 Proposed Procedure Side Surgeon belia Sol MD Meds Allergies and Home Medications Allergies Allergy/AdvReac Type Severity Reaction Status Date / Time indapamide Allergy Severe hypokalemia Verified 02/07/25 12:28 Home Medication Medication Instructions Recorded acetaminophen 500 mg tablet 500 mg PO Q6H PRN 01/11/25 (Tylenol Extra Strength) alendronate 70 mg tablet 70 mg PO QWEEK 01/11/25 amlodipine 5 mg tablet 5 mg PO DAILY 01/11/25 calc 166.6 mg-D3 4.15 mcg-mag ox 1 cap PO DAILY 01/11/25 83.3 mg-ascorbate calc-K2-min capsule calcium carbonate 500 mg PO DAILY 01/11/25 cetirizine 10 mg tablet (All Day 10 mg PO DAILY PRN 01/11/25 Allergy (cetirizine)) letrozole 2.5 mg tablet 2.5 mg PO DAILY 01/11/25 losartan 50 mg tablet 50 mg PO DAILY 01/11/25 magnesium glycinate 300 mg PO DAILY 01/11/25 multivitamin-ferrous 1 tab PO DAILY 01/11/25 fumarate-folic acid 18 mg-400 mcg tablet (Multi Complete with Iron) Current Visit Medications: Current Medications Generic Name Dose Route Start Last Admin Trade Name Freq PRN Reason Stop Dose Admin Ringer's Solution 1,000 mls @ 80 mls/hr 02/07/25 13:00 02/07/25 12:55 IV 03/09/25 12:59 80 mls/hr INFUSION BRYN Administration PFS Medical History Medical History Hypertensive disorder Osteopenia nursing home current use of aromatase inhibitor Hypokalemia Anemia Essential hypertension Migraine Hyperlipidemia Lymphedema Headache Obesity, class 1 Malignant tumor of breast Surgical History Surgical History H/O shoulder surgery H/O bilateral mastectomy Tobacco Smoking/Tobacco Use Status: Never Alcohol Alcohol Intake: never Substance Use Substance use type: does not use Vital Signs and Lab Results Vital Signs Most Recent Vital Signs in EMR: Most Recent Vital Signs Temp Pulse Resp BP Pulse Ox 36.2 C L 83 20 119/85 100 02/07/25 12:10 02/07/25 12:10 02/07/25 12:10 02/07/25 12:10 02/07/25 12:10 Lab Results Complete Blood Count: WBC, (4.4-10.8) 5.42 10^3/uL 02/05/25, 09:42 RBC, (3.93-5.22) 4.16 10^6/uL 02/05/25, 09:42 Hgb, (11.2-15.7) 12.7 g/dL 02/05/25, 09:42 Hct, (36.0-46.0) 37.5 % 02/05/25, 09:42 Plt Count, (130-400) 187 10^3/uL 02/05/25, 09:42 Coagulation Panel: APTT, (20.6-30.2) 27.7 sec 02/05/25, 09:42 Anesthesia Assessment and Plan Anesthesia History Personal History: PONV Family History: No Family History of Anesthesia Complications Exercise Tolerance Exercise Tolerance: Metabolic Equivalents>4 Pertinent Negatives Pertinent Negatives: No Symptoms of GERD, No Major Cardiovascular Symptoms or Complaints and No Major Pulmonary Symptoms or Complaints Cardiac & Pulmonary Exam Cardiac Exam: Normal S1/S2 Heart Sounds Pulmonary Exam: Clear Bilateral Breath Sounds Implantable Cardiac Device Does patient have a Pacemaker or an ICD?: No Airway Exam Known Difficult Airway: No Mallampati Class: 2 Mouth Opening: Normal (> 3cm) Thyromental Distance: Greater than 3 cm Neck Range of Motion: Full ROM Neck Circumference: Normal Teeth Condition: Normal Dentition ASA Classification ASA Score: ASA 3 Emergency Case?: No NPO Status NPO Status: NPO Clears >2 hours, Solids >8 hours Anesthesia Plan Resuscitation Status: Full Code Anesthesia Technique: General Anesthesia Airway Planned: Natural Airway Monitors Used: Standard Monitors
[2025-02-07 13:39] VITALS: BMI 29.9
[2025-02-07 14:24] VITALS: BP 102/78; PULSE 74; RESP 16; TEMP 36; O2SAT 100
--- NOTE | 2025-02-07 14:26 | W.PM.DSUDISC ---
Date of service: 02/07/25 Discharge Plan Disposition Patient Disposition: Home Condition: Good Discharge Details Reason For Visit: Screening for colon cancer Attending Provider: Brandy Sol Primary Care Provider: Lynsey Cote Home Meds and New Rx's Prescriptions: Continued losartan 50 mg tablet 50 mg PO DAILY cetirizine [All Day Allergy (cetirizine)] 10 mg tablet 10 mg PO DAILY PRN alendronate 70 mg tablet 70 mg PO QWEEK amlodipine 5 mg tablet 5 mg PO DAILY acetaminophen [Tylenol Extra Strength] 500 mg tablet 500 mg PO Q6H PRN calcium carbonate 500 mg calcium (1,250 mg) tablet 500 mg PO DAILY letrozole 2.5 mg tablet 2.5 mg PO DAILY Multi Complete with Iron 18-400 mg-mcg tablet 1 tab PO DAILY magnesium glycinate 100 mg magnesium capsule 300 mg PO DAILY nyei-S4-bnv-ascorb calc-K2-min 166.6 mg-4.15 mcg-83.3 mg capsule 1 cap PO DAILY Discharge Instructions Additional Instructions: Your colonoscopy went well today. Your prep was poor in some aspects of the colon making visualization difficult. The recommendation would be to have a repeat colonoscopy in 1 yr. Please contact the general surgery office if you have further questions or concerns. 1. If tolerated, consume a soft, low fiber diet for 1-2 days. 2[address] Do not drive, drink alcohol, operate machinery, make critical decisions, or do activities that require coordination or balance for 24 hours. 3. Because air was put into your colon during the procedure, expelling air from your rectum (passing gas or farting) is normal. 4. You may not have a bowel movement for 1-3 days because of the colonoscopy prep. This is normal. 5. Go directly to the emergency room if you notice any of the following: Develop chills (warm to touch), or if you have a thermometer and your temperature is above 101 Difficulty breathing or difficultly swallowing Persistent vomiting Severe abdominal pain, other than gas cramps Severe chest pain Black, tarry stools Any bleeding – exceeding one tablespoon 6. Call your physician if the site where your intravenous was started becomes red, swollen, painful, and warm to touch. 7. Your physician has reviewed your pre-procedure medications. Please continue to take those medications as previously ordered. You will be given specific information/education regarding any changes to your medications before leaving. Stand Alone Forms: Anesthesia Discharge InstAzeb, Rhonda Goldberg (DSU) Activity:: Activity as Tolerated Diet:: As Tolerated Discharge Orders Discharge Orders: Discharge Order (Routine); Ordered 02/07/25 Ordered By: Brandy Sol
--- NOTE | 2025-02-07 14:29 | W.COLOREPORT ---
Date of service: 02/07/25 Time of Service: 14:35 Colonoscopy Report Date of procedure: 02/07/25 Pre-op diagnosis general: Screening for colon cancer Post-op diagnosis procedure note: same Procedure: Colonoscopy Surgeon: Brandy Sol Anesthesia Type: General:No Airway Estimated blood loss (mL): 1 Pathology: none sent Complications: None Disposition: PACU Indications: Patient is a 64 yo female who presents for her first screening colonoscopy. She denies any changes in bowel habits. Prep: Miralax/Dulcolax Procedure Start Time: 13:50 Procedure End Time: 14:17 Retraction Time: 12 Findings: Poor prep throughout segments of the colon precluding visualization. Entire examined colon normal. Procedure Description: Informed consent was obtained. The patient was taken to the endoscopy suite and placed in the left lateral decubitus position. After adequate intravenous sedation, digital rectal exam was performed, which was normal. A colonoscope was inserted into the rectum and easily negotiated to the cecum. The ileocecal valve and appendiceal orifice were identified. The entire colonic mucosa was then carefully circumferentially inspected upon slow withdrawal of the scope. The entire visualized colon appeared normal however there were segments that were unable to be visualized due to poor prep. Retroflexion in the rectum was unremarkable. The patient tolerated the procedure well with no complications. Postoperatively, the patient was transferred to the recovery room in stable condition. [place] Bowel Prep [place] Bowel Prep Right Colon: 2 Left Colon: 1 Transverse Colon: 1 Total Score: 4
--- NOTE | 2025-02-07 14:30 | W.ANESPOSTOP ---
Postoperative Evaluation Date, Time and Location Date Performed: 02/07/25 Time Performed: 14:25 Patient Location: Day Surgery Unit Vital Signs Most Recent Imported Vital Signs: Most Recent Vital Signs Temp Pulse Resp BP Pulse Ox 36 C L 74 16 102/78 100 02/07/25 14:24 02/07/25 14:24 02/07/25 14:24 02/07/25 14:24 02/07/25 14:24 Assessment Mental Status: Awake (Alert & Oriented to Patient Baseline) Airway and Respiratory Function: Patent airway with normal (patient baseline) respiratory exam Cardiovascular Function: Hemodynamically Stable Hydration Status: Adequately Hydrated Nausea & Vomiting: No Nausea or Vomiting Pain: Pt. Denies Any Pain Peripheral Nerve Block: Patient did not receive a nerve block
[2025-02-07 14:45] VITALS: BP 122/80; PULSE 70; RESP 16; TEMP 36.4; O2SAT 100
== END 2025-02-07 14:59 | disposition home or self-care (01) ==
PROVIDERS: PCP Family Medicine; Visit Provider Student in an Organized Health Care Education/Training Program
PROC: 0DJD8ZZ Inspection of Lower Intestinal Tract, Via Natural or Artificial Opening Endoscopic (ICD-10-PCS; CPT 45378; principal; 2025-02-07 15:00)
DX: Z12.11 Encounter for screening for malignant neoplasm of colon (principal)
CPT/HCPCS: 45378; J2704